=== PATIENT | female | born 1980 | race Two or more races ===

== ENCOUNTER → 2025-02-03 | Outpatient (CLI) | payer MEDICAID, SELFPAY ==
--- NOTE | 2025-02-03 16:00 | XR_ITS ---
Examination: CT abdomen without intravenous contrast. Coronal 2-D reconstructions. Sagittal 2-D reconstructions. Date and time of exam:February 03, 2025 1705 hrs. Indications: Patient pain beginning one week ago. CTDI: vol (mGy): 6.46 DLP: (mGycm): 184 Technique: Axial images of the abdomen have been obtained, 3 mm slice thickness, abdomen without intravenous contrast 2-D sagittal coronal reconstructions Low dose protocols were performed. One or more of the following dose reduction techniques were used; automated exposure control, adjustment of the mA and/or KV according to patient size, use of iterative reconstruction technique. Findings: No focal liver or splenic lesions. No gallstones. No pancreatic edema. Normal adrenal glands. Mild extrarenal pelvis right and left kidney, no hydronephrosis or ureteral calculi No pericecal inflammatory change There is partial visualization of an enlarged fundus of uterus Moderate osteopenia Impression: No bowel obstruction No liver splenic lesion Recommend pelvic sonography to assess enlarged fundus of uterus
== END | disposition home or self-care (01) ==
LOC: SCAT 16:14
PROVIDERS: PCP Registered Nurse; Referring Provider Registered Nurse; Visit Provider Registered Nurse
DX: R10.9 Unspecified abdominal pain (principal)
CPT/HCPCS: 74150